=== PATIENT | male | born 1950 | race African-American/Black ===

== ENCOUNTER 2017-05-01 14:00 | Inpatient (IN) | payer OTHER ==
[~2017-05-01] VITALS: Ht 182.9 cm; Wt 85.0 kg
--- NOTE | ~2017-05-01 | EKG ---
[address] [place] [employer] [place] [address] ELECTROCARDIOGRAM REPORT Name: COLTONFLASH Kelley Room #: 212-P ADM IN M.R.#: [id number] Admission: 05/01/17 Attend Phys: Mark Anthony Palomares MD Discharge: Date of : 52 Report #: [id number] THIS REPORT FOR: //name// [facility] Test Date: 2017-05-02 Test Time: 05:56:31 Pat Name: FLASH SEGURA Department: Room: 212 P Gender: M Manager Highway: [place]YA : 1950 Requested By: Dov Montalvo Order Number: [id number] MD: Hema Salas Measurements Intervals [place] Rate: 84 P: NV: QRS: 80 QRSD: 114 T: 84 QT: 412 QTc: 488 Interpretive Statements Atrial flutter with predominant 3:1 AV block Poor R wave progression Cannot rule out inferior infarct, age indeterminate No previous ECG available for comparison Electronically Signed On 05-02-2017 16:43:39 CDT by Hema Salas [email or web address] <ELECTRONICALLY SIGNED> By: Hema Salas MD, [facility] 05/02/17 1643 0556 0556 Hema Salas MD, [facility] /EPI
--- NOTE | ~2017-05-01 | 2DMMODE ---
[facility] [address] [place] [address] 2 D/M-MODE ECHOCARDIOGRAM Name: FLASH SEGURA Room #: 212-P ADM IN M.R.#: [id number] Admission: 05/01/17 Attend Phys: Mark Anthony Palomares MD Discharge: Date of : 52 Date of Service: 05/02/17 1231 Report #: [id number] THIS REPORT FOR: //name// APPROVED REPORT Study performed: 05/02/2017 10:57:17 EXAM: Comprehensive 2D, Doppler, and color-flow Echocardiogram Patient Location: Echo lab Room #: [facility] Status: routine BSA: 2.06 HR: 92 bpm BP: 136/94 mmHg Rhythm: NSR/Irregular Other Information Study Quality: Adequate Indications Palpitations Chest Pain Hx: Mitral Valve repair 2D Dimensions RVDd: 32.86 mm LVEF(%): 24.29 (>50%) IVSd: 11.49 (7-11mm) LVOT Diam: 23.74 (18-24mm) LVDd: 50.52 mm PWd: 11.32 (7-11mm) Ascending Ao: 34.39 (22-36mm) LVDs: 44.84 (25-40mm) Aortic Root: 38.04 mm Banegas's LVEF: 24.29 % Volumes Left Atrial Volume (Systole) Single Plane 4CH: 47.97 mL Single Plane 2CH: 64.31 mL LA ESV Index: 30.00 mL/m2 Aortic Valve AoV Peak Sylvester.: 1.02 m/s AO Peak Gr.: 4.17 mmHg LVOT Max P.35 mmHg LVOT Max V: 0.77 m/s SHY Vmax: 3.32 cm2 Mitral Valve [facility] [address] [place] [address] 2 D/M-MODE ECHOCARDIOGRAM Name: COLTONTAYLORVIDALES Warren Room #: [facility] IN ..#: [id number] Admission: 05/01/17 Attend Phys: Mark Anthony Palomares MD Discharge: Date of : 52 Date of Service: 05/02/17 1231 Report #: [id number] MV Decel. Time: 188.11 ms MV E Max Sylvester.: 0.95 m/s IVRT: 127.64 ms Pulmonary Valve PV Peak Sylvester.: 0.49 m/s PV Peak Gr.: 0.95 mmHg Tricuspid Valve TR Peak Sylvester.: 2.55 m/s RAP Estimate: 5.00 mmHg TR Peak Gr.: 26.00 mmHg PA Pressure: 31.00 mmHg Left Ventricle The left ventricle is normal size. There is normal left ventricular wall thickness. Left ventricular systolic function is at the lower limits of normal LVEF 45-50%. This study is not technically sufficient to allow evaluation of the LV diastolic function. Right Ventricle The right ventricle is normal size. The right ventricular systolic function is normal. Atria Left atrium is mildly dilated. Right atrium is mildly dilated. Aortic Valve The aortic valve is normal in structure. No aortic regurgitation is present. There is no aortic valvular stenosis. Mitral Valve Changes consistent with mitral valve repair Mild mitral regurgitation. No evidence of mitral valve stenosis. Tricuspid Valve The tricuspid valve is normal in structure. Mild tricuspid regurgitation. Estimated PAP 31 mmHg. Pulmonic Valve The pulmonary valve is normal in structure. Mild pulmonic regurgitation. Great Vessels The aortic root is normal in size. The ascending aorta is normal in size. IVC is normal in size and collapses >50% with inspiration. [facility] [address] [place] [address] 2 D/M-MODE ECHOCARDIOGRAM Name: FLASH SEGURA Warren Room #: 212-P [facility] IN .R.#: [id number] Admission: 05/01/17 Attend Phys: Mark Anthony Palomares MD Discharge: Date of : 52 Date of Service: 05/02/17 1231 Report #: [id number] Pericardium There is no pericardial effusion. <Conclusion> Left ventricular systolic function is at the lower limits of normal LVEF 45-50%. Both atria are mildly dilated. The aortic valve is normal in structure. No aortic regurgitation or stenosis Changes consistent with mitral valve repair. Mild mitral regurgitation. Pulmonary artery pressure of 30mmHg There is no pericardial effusion. <ELECTRONICALLY SIGNED> By: Hema Salas MD, FACC 05/02/17 1231 1231 1231 Hema Salas MD, FACC /INF
--- NOTE | ~2017-05-01 | CATHLAB ---
[facility] [address] [place] [address] INVASIVE PROCEDURE REPORT Name: COLTONFLASH Room #: 212-P DIS IN [facility].#: [id number] Admission: 05/01/17 Attend Phys: Mark Anthony Palomares MD Discharge: 05/04/17 Date of : 52 Date of Service: 05/12/17 1628 Report #: [id number] THIS REPORT FOR: //name// APPROVED REPORT Study performed: 05/03/2017 10:21:02 Patient Details Patient Status: In-Patient Room #: The patient is a 66 year-old male Event Personnel Dov Montalvo Lay Out Machine Operator, Bonilla Thompson RN, Sunshine Reed RTR, OCTAVIANO Pierre, Jonh Palacios Monitor Procedures Performed Left Heart Cath Coronaries, Bypass Grafts 5148636 LHCCORCABG PTCA Single Vessel DIAG [id number] PCISINGLE Aortogram Abdominal Peripheral Angio [id number] Indication Chest pain Procedure Narrative The Right Groin^ was infiltrated with 1% Lidocaine subcutaneous anesthesia. A PINNACLE 6FR Sheath #[id number] sheath was inserted into the RFA^. Coronary angiography was performed using coronary diagnostic catheters. The right coronary system was accessed and visualized with a JR4 catheter. The left coronary system was accessed and visualized with a JL4 catheter. The left ventricle was accessed and visualized with a PIGTAIL catheter. Left ventriculogram was performed in 30 degree projection. An aortogram of the abdominal aorta was performed. Closure device was deployed with a 6 Fr MYNXGRIP 6/7F #[id number]. The patient tolerated the procedure well and there were no complications associated with the procedure. There was no hematoma. Intraoperative Conscious Sedation Sedation start time: 12.40 Case end Time: 13.28 Fentanyl 25 mcg Versed 2 mg Fluoro Time: 8.46 minutes Dose: 1206 mGy Contrast Type and Amount: Omnipaque 225 ml [facility] [place] [address] INVASIVE PROCEDURE REPORT Name: FLASH SEGURA Room #: 212-P [facility] IN ..#: [id number] Admission: 05/01/17 Attend Phys: Mark Anthony Palomares MD Discharge: 05/04/17 Date of : 52 Date of Service: 05/12/17 1628 Report #: [id number] IVUS A Guide Catheter was used to engage the LAUNCHER 6FR EBU 4 #[id number] ostium. A Luge Wire .014 x 182CM #[id number] was used. IVUS Findings Sprinter OTW 2.5 x 12 #[id number] Hemodynamics The aortic pressure is 123/73 mmHg with a mean of 84 mmHg. The left ventricular pressure is 130/72 mmHg with a mean of mmHg. PCI Technique Lesion Percutaneous coronary intervention was performed on the first diagnonal branch segment. A LAUNCHER 6FR EBU 4 #[id number] Guide Catheter was used to engage the LCA ostium. A Luge Wire .014 x 182CM #[id number] Interventional Guidewire was used to cross the lesion. BALLOON DILATION A Balloon catheter Sprinter OTW 2.5 x 12 #[id number] was inserted and inflated up to 8.00atm for 12seconds. Additional Inflation: 8.00atm for 14seconds. Additional Inflation: 8.00atm for 27seconds. PCI Technique Lesion A LAUNCHER 6FR EBU 4 #991154 Guide Catheter was used to engage the ostium. A Luge Wire .014 x 182CM #[id number] Interventional Guidewire was used to cross the lesion. BALLOON DILATION A Balloon catheter Sprinter OTW 2.5 x 12 #[id number] was inserted and inflated up to 8.00atm for 20seconds. Additional Inflation: 8.00atm for 25seconds. Additional Inflation: 8.00atm for 16seconds. Conclusion #1 successful PTCA of high-grade proximal diagonal branch lesion (no stent placed) #2 left main with mild irregularities giving rise to LAD and circumflex #3 LAD with mild disease extends to the apex. #4 circumflex OM is nondominant first OM branch is occluded distally the OM is diffusely diseased and patent #5 dominant RCA has moderate disease 50% mid vessel lesion 30-40% distal giving rise this relatively small PDA LYN widely patent #6 SVG to OM system is intact with mild irregularity. #7 evidence of a mitral valve ring repair [address] [address] INVASIVE PROCEDURE REPORT Name: FLASH SEGURA Room #: 212-P [facility] IN M.R.#: [id number] Admission: 05/01/17 Attend Phys: Mark Anthony Palomares MD Discharge: 05/04/17 Date of : 52 Date of Service: 05/12/171627 Report #: [id number] Recommendations and plan continue aggressive risk factor modification will utilize dual antiplatelet therapy for one month post PTCA only of diagonal branch. Transfer CCU in stable condition. <ELECTRONICALLY SIGNED> By: Dov Montalvo MD, FACC 05/12/178 27 27 Dov Montalvo MD, FACC /INF
--- NOTE | ~2017-05-01 | EKG ---
[address] [place] [address] ELECTROCARDIOGRAM REPORT Name: COLTONFLASH Kelley Room #: 212-P ADM IN M.R.#: [id number] Admission: 05/01/17 Attend Phys: Mark Anthony Palomares MD Discharge: Date of : 52 Report #: [id number] THIS REPORT FOR: //name// [facility] ED Test Date: 2017-05-01 Test Time: 14:00:51 Pat Name: FLASH SEGURA Department: Room: [facility] Gender: M Hat Body Sorter: ANTONIA : 1950 Requested By: Paolo Obrien Order Number: [id number] MD: Hema Salas Measurements Intervals [place] Rate: 95 P: 0 NE: 163 QRS: -18 QRSD: 90 T: 68 QT: 381 QTc: 479 Interpretive Statements Atrial flutter with variable AV conduction Premature ventricular complexes Possible Inferior infarct, age indeterminate No previous ECG available for comparison Electronically Signed On 05-02-2017 13:20:27 CDT by Hema Salas [email or web address] <ELECTRONICALLY SIGNED> By: Hema Salas MD, [facility] 05/02/17 1320 1400 1400 Hema Salas MD, FAC /EPI
--- NOTE | ~2017-05-01 | EKG ---
[address] [place] [address] ELECTROCARDIOGRAM REPORT Name: COLTONFLASH Kelley Room #: 212-P ADM IN M.R.#: [id number] Admission: 05/01/17 Attend Phys: Mark Anthony Palomares MD Discharge: Date of : 52 Report #: [id number] THIS REPORT FOR: //name// [facility] ED Test Date: 2017-05-01 Test Time: 15:30:41 Pat Name: FLASH SEGURA Department: Room: 212 P Gender: M Secretary Specialist: WINTER : 1950 Requested By: Paolo Obrien Order Number: [id number] MD: Hema Salas Measurements Intervals [place] Rate: 108 P: IA: QRS: 40 QRSD: 103 T: 60 QT: 375 QTc: 503 Interpretive Statements Atrial flutter with predominant 3:1 AV block Premature ventricular complexes Inferior infarct, age indeterminate Poor R wave progression No previous ECG available for comparison Electronically Signed On 05-02-2017 13:22:45 CDT by Hema Salas [email or web address] <ELECTRONICALLY SIGNED> By: Hema Salas MD, [facility] 05/02/17 1322 29 29 Hema Salas MD, [facility] /EPI
--- NOTE | ~2017-05-01 | HC ---
[facility] [place] [address] CONSULTATION Name: COLTONVIDALES Warren Room #: 212-P ADM IN M.R.#: [id number] Admission: 05/01/17 Attend Phys: Mark Anthony Palomares MD Discharge: Date of : 52 Report #: [id number] THIS REPORT FOR: //name// CC: FAM unknown Mark Anthony Weir MD DATE OF SERVICE: 05/01/2017 HISTORY OF PRESENT ILLNESS: The patient is a 66-year-old male. He came to the Emergency Room after complaining of some irregular heartbeat, some fluttering and perhaps some left-sided chest discomfort. He has a history of a 2-vessel mitral bypass and a mitral valve repair in November 2016 at [facility] by Dr. Howell. He has been fatigued and never really bounced back. He states from the surgery, but was diagnosed with prostate cancer approximately in the last 1-2 months and is senior care through radiation therapy for prostate cancer. He remains fairly active, although he is retired from [employer]. He denies PND, orthopnea, peripheral edema. Just wishes that he could get back to playing tennis and to be an active again, but he denies any recurrent chest pain, pressure, just his palpitation issue and was noted to have some irregularity last week in rehabilitation. Was seen by his front office coordinator in the last 10 days or so, but no EKG had been performed he stated. He does not really feel worse today. Troponins at 0.07 and 0.06 are not diagnostic. There is no acute injury pattern. He is found to be in atrial flutter with a moderate ventricular response and frequent PVCs are noted. He does not have any history of this that he is aware of, does not believe that he ever had this postoperatively. There is no current of injury, although was interpreted initially in the Emergency Room differently. This is not an infarct pattern. He has been compliant with medications, which are aspirin, Lipitor 10, Flomax 0.4, lisinopril/HCT 10/12.5. PAST MEDICAL AND SURGICAL HISTORY: Positive for he had some hernia repair a year or two ago and then subsequently the bypass surgery 2 vessels and the mitral valve repair. Some borderline hypertension, hypercholesterolemia. He states he has been quite healthy his whole life. ALLERGIES: No known drug allergies. SOCIAL HISTORY: He is , has a significant other girlfriend with him. He has one child who is in school and doing well. He is a social alcohol user recreational in the remote past, drug user and tobacco user, but really none of this currently. He is retired from [employer] period of 20 years. FAMILY HISTORY: Negative for any premature coronary artery disease. LABORATORY WORK: Potassium is 3.9, sodium is 141, creatinine 1.0. Troponin [address] [address] CONSULTATION Name: FLASH SEGURA Warren Room #: 212-P ADM IN M.R.#: [id number] Admission: 05/01/17 Attend Phys: Mark Anthony Palomares MD Discharge: Date of : 52 Report #: [id number] 0.06 and 0.07, certainly not diagnostic. BNP was 770. H and H is 11.6 and 35.8, white count 7.3, platelets 355. EKG shows some borderline cardiomegaly, but no acute pulmonary disease. No pulmonary edema. REVIEW OF SYSTEMS: Essentially negative except for as stated above, the fatigue and some hesitancy, undergoing radiation therapy for prostate cancer. PHYSICAL EXAMINATION: GENERAL: He is pleasant, alert. He is in a chair. He is having no discomfort. VITAL SIGNS: Pulse is 100 and irregularly irregular, blood pressure 130/90. HEENT: Eyes show xanthelasmas. Pharynx is clear. NECK: Shows preserved upstrokes without JVD or bruits. LUNGS: Clear. CARDIOVASCULAR: Irregularly irregular S1, S2, holosystolic murmur at the apex. ABDOMEN: Soft. No HSM. No abdominal bruit. EXTREMITIES: Reveal no edema. Distal pulses diminished, but intact. NEUROLOGIC: Nonfocal. SKIN: Warm and dry without xanthoma or ulcer. MUSCULOSKELETAL: No gross joint deformity. Mild arthritic changes are noted. ASSESSMENT: 1. Recent onset atrial fibrillation/flutter with moderate ventricular response, rate control. 2. Chest pain, resolved with nondiagnostic equivocal troponin of 0.06 and 0.07. No evidence of ischemia on EKG. 3. History of 2-vessel bypass with mitral valve repair in November 2016. 4. Hypertension. 5. Hypercholesterolemia. RECOMMENDATIONS AND PLAN: The patient is comfortable, he had been placed on heparin drip. I will place him on Lovenox b.i.d. for ease and no need for bunch of unnecessary blood draws. He will need to be anticoagulated from the atrial fibrillation/flutter. I will repeat an echo Doppler like the valve and an LV function. In addition, nuclear stress testing. There has been no testing done since the bypass and valve repair of November last year. Based on the symptoms, we will need to rule out any significant ischemia, I think is highly unlikely here and we will also obtain echo Doppler. He will need some long-term anticoagulation. He has a mitral valve repair and no longer anticoagulated for that repair, so this essentially could be what they want us to deem is non-valvular AFib or valvular AFib. Warfarin and Coumadin was very onerous postoperatively, he preferred not to have that. He is not anticoagulated based on the mitral valve repair. One could certainly utilize and novel a direct oral anticoagulant going forward. We will make further recommendations as hospitalization. Certainly seems to be stable at this point. I discussed this plan with him and his significant other in detail. [facility] [address] [place] [address] CONSULTATION Name: FLASH SEGURA Room #: 212-P ADM IN ..#: [id number] Admission: 05/01/17 Attend Phys: Mark Anthony Palomares MD Discharge: Date of : 52 Report #: [id number] Thank you for allowing me to assist in the care of this patient. <ELECTRONICALLY SIGNED> By: Dov oMntalvo MD, FACC 05/02/17 1231 2218 0010 Dov Montalvo MD, FACC /nt
[2017-05-01 14:04] VITALS: BP 151/94
[2017-05-01] MEDS ORDERED: ASPIRIN81 M2 PO (14:05)
[2017-05-01] MEDS ORDERED: LIPITOR10 MG PO (14:05)
[2017-05-01] MEDS ORDERED: LISINOPRIL10 MG PO (14:06)
[2017-05-01] MEDS ORDERED: MICROZIDE12.5 MG PO (14:06)
[2017-05-01] MEDS ORDERED: FLOMAX0.4 MG PO (14:06)
[2017-05-01 14:25] LABS: HEMATOCRIT 35.8 % (42.0-52.0); HEMOGLOBIN 11.6 gm/dL (14.0-18.0); MCH 23.8 pg (26.0-34.0); MCHC 32.4 g/dL (28.0-37.0); MCV 73.7 fL (80.0-100.0); RBC 4.87 mil/uL (4.50-6.00); RDW 15.8 % (10.5-14.5); WBC 7.3 thou/uL (4.0-11.0)
[2017-05-01 14:36] LABS: INR 1.1; PROTIME 11.1 Seconds (9.3-11.4)
[2017-05-01 14:57] LABS: CALCIUM 9.3 mg/dL (8.5-10.1); POTASSIUM 3.9 mmol/L (3.5-5.1)
[2017-05-01 15:05] LABS: ALBUMIN 3.3 g/dL (3.4-5.0); TOTAL BILIRUBIN 0.6 mg/dL (<0.1-1.0); TOTAL PROTEIN 7.4 g/dL (6.4-8.2); TROPONIN-I 0.06 ng/mL (<0.06)
[2017-05-01 16:02] VITALS: BP 127/103
[2017-05-01 17:11] VITALS: BP 149/110
[2017-05-01 19:36] VITALS: BP 132/91
[2017-05-01] MEDS ORDERED: CENTRUM SILVER1 EAC4 PO (21:05)
[2017-05-02 00:08] VITALS: BP 120/63
[2017-05-02 04:11] VITALS: BP 136/94
[2017-05-02 04:52] LABS: CALCIUM 9.2 mg/dL (8.5-10.1); POTASSIUM 3.9 mmol/L (3.5-5.1)
[2017-05-02 04:56] LABS: CHOLESTEROL 114 mg/dL (<200); HDL CHOLESTEROL 68 mg/dL (>40); LDL CHOLESTEROL 41 mg/dL (<100); TC:HDL 1.7 Ratio (Not establshd); TRIGLYCERIDE 29 mg/dL (<150); VLDL 6 mg/dL (<40)
[2017-05-02 05:15] LABS: SERUM ASSESSMENT Clear
[2017-05-02 05:24] LABS: HEMATOCRIT 34.9 % (42.0-52.0); MCH 23.3 pg (26.0-34.0); MCHC 31.4 g/dL (28.0-37.0); MCV 74.2 fL (80.0-100.0); RBC 4.71 mil/uL (4.50-6.00); RDW 16.1 % (10.5-14.5); WBC 8.3 thou/uL (4.0-11.0)
[2017-05-02 15:38] VITALS: BP 136/92
[2017-05-02 19:15] VITALS: BP 105/69
[2017-05-03] VITALS (15 sets, daily range): BP systolic 110–145; BP diastolic 68–103
[2017-05-04 05:15] VITALS: BP 134/92
[2017-05-04 07:25] VITALS: BP 121/86
[2017-05-04] MEDS ORDERED: XARELTO20 MG PO (09:55)
[2017-05-04] MEDS ORDERED: METOPROLOL SUCC50 MG PO (09:56)
[2017-05-04 10:07] VITALS: BP 134/92
== END 2017-05-04 11:05 | disposition home or self-care (01) | DRG 250 ==
LOC: ER 14:00 → EROBS 15:26 → 2N 15:26 → ENTRNSPT 05-04 10:43 → EDTRNSPTSTS 05-04 10:55 → 2N 05-04 11:05
PROVIDERS: Emergency Medicine; Hospitalist
PROC: 4A023N7 Measurement of Cardiac Sampling and Pressure, Left Heart, Percutaneous Approach (ICD-10-PCS; principal; 2017-05-03)
PROC: B2111ZZ Fluoroscopy of Multiple Coronary Arteries using Low Osmolar Contrast (ICD-10-PCS; principal; 2017-05-03)
PROC: 02703ZZ Dilation of Coronary Artery, One Artery, Percutaneous Approach (ICD-10-PCS; principal; 2017-05-03)
DX: I48.92 Unspecified atrial flutter (principal); I50.23 Acute on chronic systolic (congestive) heart failure; E78.00 Pure hypercholesterolemia, unspecified; I25.10 Atherosclerotic heart disease of native coronary artery without angina pectoris; F12.90 Cannabis use, unspecified, uncomplicated; C61 Malignant neoplasm of prostate; I48.91 Unspecified atrial fibrillation; Z79.82 Long term (current) use of aspirin; Z79.899 Other long term (current) drug therapy; Z87.891 Personal history of nicotine dependence; Z28.21 Immunization not carried out because of patient refusal; Z95.1 Presence of aortocoronary bypass graft; I11.0 Hypertensive heart disease with heart failure
CPT/HCPCS: 10194

== ENCOUNTER 2018-02-18 05:08 | Emergency (ER) | payer OTHER ==
[~2018-02-18] VITALS: Ht 182.9 cm; Wt 90.7 kg
[~2018-02-18 05:08] MED LIST: ASPIRIN81 M2 PO; CENTRUM SILVER1 EAC4 PO; FLOMAX0.4 MG PO; LIPITOR10 MG PO; LISINOPRIL10 MG PO; METOPROLOL SUCC50 MG PO; MICROZIDE12.5 MG PO; XARELTO20 MG PO
[2018-02-18] MEDS ORDERED: KEFLEX500 M1 PO (06:21)
[2018-02-18 07:24] VITALS: BP 181/85
== END 2018-02-18 07:25 | disposition home or self-care (01) ==
LOC: ER 05:08
DX: R04.0 Epistaxis (principal); Z87.891 Personal history of nicotine dependence

== ENCOUNTER → 2019-06-21 | Outpatient (CLI) | payer OTHER ==
[~2019-06-21] MED LIST changes: +KEFLEX500 M1 PO
== END ==
LOC: SJCVCIMAG 05-20 13:19
DX: I08.8 Other rheumatic multiple valve diseases (principal); I11.9 Hypertensive heart disease without heart failure; I44.0 Atrioventricular block, first degree; R94.31 Abnormal electrocardiogram [ECG] [EKG]; I25.810 Atherosclerosis of coronary artery bypass graft(s) without angina pectoris; E78.00 Pure hypercholesterolemia, unspecified; I42.9 Cardiomyopathy, unspecified; I48.0 Paroxysmal atrial fibrillation; D68.59 Other primary thrombophilia; I49.3 Ventricular premature depolarization; R53.83 Other fatigue; I25.2 Old myocardial infarction; Z82.49 Family history of ischemic heart disease and other diseases of the circulatory system; Z79.899 Other long term (current) drug therapy; Z87.891 Personal history of nicotine dependence; Z98.890 Other specified postprocedural states; Z95.1 Presence of aortocoronary bypass graft

== ENCOUNTER → 2019-06-25 | Outpatient (CLI) | payer OTHER | LOC: SJCVCIMAG 09:22 | DX: R94.31 Abnormal electrocardiogram [ECG] [EKG] (principal); I49.3 Ventricular premature depolarization; I25.810 Atherosclerosis of coronary artery bypass graft(s) without angina pectoris; I48.0 Paroxysmal atrial fibrillation; I42.9 Cardiomyopathy, unspecified; I25.5 Ischemic cardiomyopathy; E78.5 Hyperlipidemia, unspecified; I25.2 Old myocardial infarction; I10 Essential (primary) hypertension; Z87.891 Personal history of nicotine dependence; Z98.61 Coronary angioplasty status; Z79.01 Long term (current) use of anticoagulants; Z79.899 Other long term (current) drug therapy ==

== ENCOUNTER → 2019-09-25 | Outpatient (CLI) | payer OTHER ==
[~2019-09-25] MED LIST changes: +CARVEDILOL3.125 MG PO; +SORINE 80 MG TA80 MG PO
== END ==
LOC: SJCVCIMAG 14:05
PROVIDERS: ATTEND Internal Medicine Cardiovascular Disease
DX: I08.8 Other rheumatic multiple valve diseases (principal); I44.0 Atrioventricular block, first degree; I48.91 Unspecified atrial fibrillation; I25.10 Atherosclerotic heart disease of native coronary artery without angina pectoris; I11.0 Hypertensive heart disease with heart failure; I50.20 Unspecified systolic (congestive) heart failure; I25.5 Ischemic cardiomyopathy; E78.5 Hyperlipidemia, unspecified; E78.00 Pure hypercholesterolemia, unspecified; I25.2 Old myocardial infarction; Z79.899 Other long term (current) drug therapy; Z87.891 Personal history of nicotine dependence

== ENCOUNTER → 2019-09-30 | Outpatient (CLI) | payer OTHER ==
[~2019-09-30] MED LIST changes: -CARVEDILOL3.125 MG PO; -SORINE 80 MG TA80 MG PO
== END ==
LOC: LAB 11:28
PROVIDERS: ATTEND Internal Medicine Cardiovascular Disease
DX: Z01.812 Encounter for preprocedural laboratory examination (principal); Z11.59 Encounter for screening for other viral diseases

== ENCOUNTER 2019-10-04 09:35 | Observation (INO) | payer OTHER ==
[~2019-10-04] VITALS: Ht 182.9 cm; Wt 96.2 kg
[2019-10-04] VITALS (9 sets, daily range): BP systolic 108–151; BP diastolic 62–97
--- NOTE | ~2019-10-04 | P ---
[facility] [address] PROCEDURE REPORT Name: FLASH SEGURA Room #: 213-P [facility] M.R.#: [id number] Admission: 10/04/19 Attend Phys: Cristobal Jennings MD Discharge: Date of : 52 Report #: [id number] THIS REPORT FOR: cc: Lorenza Weir MD,Lorenza Jennings,Cristobal Barron MD ~ CC: Cristobal Weir DATE OF SERVICE: 10/04/2019 PROCEDURE: ICD implantation. PREOPERATIVE DIAGNOSIS: Ischemic cardiomyopathy. POSTOPERATIVE DIAGNOSIS: Ischemic cardiomyopathy. HISTORY: The patient is a 68-year-old with history of coronary artery disease, status post WA with ischemic cardiomyopathy, EF of less than 35% with class 2-3 heart failure symptoms, here for ICD implantation for primary prevention of sudden cardiac . ANESTHESIA: The patient underwent MAC anesthesia with no anesthesia-related complications. DESCRIPTION OF PROCEDURE: The patient underwent informed consent. We discussed the details of the procedure including the risks, which include but not limited to bleeding, infection, vascular damage, cardiac perforation, and pneumothorax. He understood these risks and is willing to proceed. The patient was brought to EP laboratory in fasting and sedated state, prepped and draped in a sterile fashion, received IV antibiotics and underwent venogram showing patency of the left axillary vein. Next, I injected lidocaine at the incision site. Incision was made, pocket was created over the prepectoral fascia and access was obtained twice to left axillary vein using the extrathoracic approach. Sheaths were positioned using the modified Seldinger technique. Next, under fluoroscopy, RV lead was placed in the right ventricular apex and atrial lead was placed in the right atrial appendage both with adequate pacing and sensing thresholds. Leads were sutured to the prepectoral fascia, connected to the device. Tug test performed, pocket irrigated with vancomycin. Pocket closed in 2 layers using 2-0 for the deep layer, 3-0 for the middle layer and surgical glue was placed to outer skin layer. The patient awoke neurologically and hemodynamically intact. No complications and no significant bleeding. Implant device and leads were [employer] with ICD that was a model #[id number], [facility] [address] [place] [address] PROCEDURE REPORT Name: COLTONFLASH Room #: 213-P [facility] M.R.#: [id number] Admission: 10/04/19 Attend Phys: Cristobal Jennings MD Discharge: Date of : 52 Report #: [id number] serial #[id number]. Atrial lead was model #5076, 52 cm, with P-wave of 2.4 millivolts, pacing impedance of 864 ohms and pacing threshold of 0.9 volts at 0.4 milliseconds. RV lead was 6935, 62 cm, serial #[id number] with R-wave of 12.4 millivolts, pacing impedance of 557 ohms, pacing threshold of 0.6 volts at 0.4 milliseconds. The device was programmed to DDDR 60-130 mode. The VT zone was set at 180-220 beats per minute with 3 rounds of burst followed by 3 rounds of ramp followed by max output shocks. VF zone was set at greater than 240 beats per minute with ATP while charging followed by max output shocks. CONCLUSIONS: 1. Successful dual-chamber ICD implantation. 2. Satisfactory atrial and ventricular pacing and sensing thresholds. By: 1341 1414 Cristobal Jennings MD /nt
[2019-10-04 11:11] LABS: HEMATOCRIT 40.1 % (42.0-52.0); HEMOGLOBIN 13.2 gm/dL (14.0-18.0); MCH 25.2 pg (26.0-34.0); MCHC 32.8 g/dL (28.0-37.0); MCV 76.8 fL (80.0-100.0); RBC 5.23 mil/uL (4.50-6.00); RDW 15.3 % (10.5-14.5); WBC 7.6 thou/uL (4.0-11.0)
[2019-10-04 11:19] LABS: CALCIUM 8.8 mg/dL (8.5-10.1); CREATININE 1.3 mg/dL (0.7-1.3); POTASSIUM 3.6 mmol/L (3.5-5.1)
[2019-10-04 11:26] LABS: ALBUMIN 3.7 g/dL (3.4-5.0); TOTAL PROTEIN 7.6 g/dL (6.4-8.2)
[2019-10-04 11:30] LABS: INR 1.1
[2019-10-04] MEDS ORDERED: XARELTO20 MG PO (16:14)
[2019-10-04] MEDS ORDERED: SORINE 80 MG TA80 MG PO (16:14)
--- NOTE | 2019-10-04 16:51 | NUR ---
PT CARE ASSUMED APPROX 1420. ASSESSMENTS CHARTED. PT DENIES SOA. REPORTS ADEQUATE PAIN MANAGEMENT OF LEFT CHEST INCISION. POST ICD PLACEMENT VSS WITHIN NORMAL LIMITS. INCISION CLOSED WITH SURGICAL GLUE IS C/D/I. PT'S GAIT UNASSESSED AT THIS TIME DUE TO BATHROOM PRIV ONLY. POC EXPLAINED TO PT AND SPOUSE AT BEDSIDE UPON ARRIVAL TO UNIT. BOTH DENIED QUESTIONS OR CONCERNS REGARDING POC. PT TOLERATING POC. NO DISTRESS NOTED.
[2019-10-05] VITALS: BP 143/76
--- NOTE | 2019-10-05 03:57 | NUR ---
ASSESSED AT START OF SHIFT 1900. PT RESTING IN BED HYDROCODONE GIVEN FOR MILD PAIN OF 4/10 WITH COMPLETE RELIEF. ICD INCISION C/D/I. URINAL AT BED SIDE. SHOULDER IMBOLIZATION INTACT. RESTORIL GIVEN FOR SLEEP PT SLEPT THE REST OF NIGHT WILL CONT TO MONITOR
[2019-10-05 04:00] VITALS: BP 142/80
[2019-10-05 07:40] VITALS: BP 139/72
[2019-10-05] MEDS ORDERED: CARVEDILOL3.125 MG PO (09:25)
[2019-10-05 10:18] VITALS: BP 139/72
--- NOTE | 2019-10-05 10:57 | NUR ---
ASSUMED CARE OF PT AT SHIFT CHANGE. ASSESSMENT CHARTED. MEDS GIVEN PER APR. PT A&OX4, NO C/O PAIN OR DISTRESS. DISCHARGE ORDERS AND INSTRUCTIONS COMPLETE, IV AND TELE DC'D. PT LEFT IN WHEELCHAIR TO WAITING IN OWN CAR.
[2019-10-05 10:58] VITALS: BP 139/72
--- NOTE | 2019-10-05 11:39 | EKG ---
[facility] [place] [address] ELECTROCARDIOGRAM REPORT Name: FLASH SEGURA Room #: 213- DIS [facility] M.R.#: [id number] Admission: 10/04/19 Attend Phys: Cristobal Jennings MD Discharge: 10/05/19 Date of : 52 Report #: [id number] THIS REPORT FOR: cc: Lorenza Weir MD, Teresa MD Couchonnal, Luis F. MD ~ THIS REPORT FOR: //name// [facility] Test Date: 2019-10-05 Test Time: 07:48:44 Pat Name: FLASH SEGURA Department: Room: 213 Gender: M Fish Grader: Kike JESUS : 1950 Requested By: Cristobal Jennings Order Number: [id number] MD: Cristobal Jennings Measurements Intervals [place] Rate: 88 P: 61 MI: 93 QRS: 123 QRSD: 126 T: -23 QT: 428 QTc: 480 Interpretive Statements Atrial-paced complexes No further analysis attempted due to paced rhythm Compared to ECG 05/02/2017 05:56:31 Electronically Signed On 10-05-2019 11:39:45 CDT by Cristobal Jennings [email or web address] <ELECTRONICALLY SIGNED> By: Cristobal Jennings MD 10/05/19 1139 0748 Cristobal Jennings MD /EPI
== END 2019-10-05 11:10 | disposition home or self-care (01) ==
LOC: CATH 09:35 → 2N 14:04
PROVIDERS: ADMIT Internal Medicine Cardiovascular Disease; ATTEND Internal Medicine Cardiovascular Disease
DX: I25.5 Ischemic cardiomyopathy (principal); I25.10 Atherosclerotic heart disease of native coronary artery without angina pectoris; I48.0 Paroxysmal atrial fibrillation; I10 Essential (primary) hypertension; E78.5 Hyperlipidemia, unspecified; Z79.82 Long term (current) use of aspirin; Z79.899 Other long term (current) drug therapy; Z95.1 Presence of aortocoronary bypass graft

== ENCOUNTER → 2019-11-20 | Outpatient (CLI) | payer OTHER ==
[~2019-11-20] MED LIST changes: +CARVEDILOL3.125 MG PO; +SORINE 80 MG TA80 MG PO
== END ==
LOC: SJCVC 13:02
PROVIDERS: ATTEND Internal Medicine Cardiovascular Disease
DX: Z45.02 Encounter for adjustment and management of automatic implantable cardiac defibrillator (principal); R94.31 Abnormal electrocardiogram [ECG] [EKG]; I49.3 Ventricular premature depolarization; I25.5 Ischemic cardiomyopathy; I10 Essential (primary) hypertension; E78.00 Pure hypercholesterolemia, unspecified; I25.2 Old myocardial infarction; Z95.1 Presence of aortocoronary bypass graft; Z95.810 Presence of automatic (implantable) cardiac defibrillator; Z79.899 Other long term (current) drug therapy; Z87.891 Personal history of nicotine dependence

== ENCOUNTER → 2020-01-02 | Outpatient (CLI) | payer OTHER | LOC: SJCVC 14:01 | PROVIDERS: ATTEND Internal Medicine Cardiovascular Disease | DX: I49.3 Ventricular premature depolarization (principal); R94.31 Abnormal electrocardiogram [ECG] [EKG]; I48.0 Paroxysmal atrial fibrillation; I48.92 Unspecified atrial flutter; I25.5 Ischemic cardiomyopathy; I25.10 Atherosclerotic heart disease of native coronary artery without angina pectoris; I10 Essential (primary) hypertension; E78.00 Pure hypercholesterolemia, unspecified; I25.2 Old myocardial infarction; Z95.1 Presence of aortocoronary bypass graft; Z98.61 Coronary angioplasty status; Z95.810 Presence of automatic (implantable) cardiac defibrillator; Z98.890 Other specified postprocedural states; Z79.899 Other long term (current) drug therapy; Z87.891 Personal history of nicotine dependence ==

== ENCOUNTER → 2020-01-15 | Outpatient (CLI) | payer OTHER | LOC: LAB | PROVIDERS: ATTEND Internal Medicine Cardiovascular Disease | DX: Z01.812 Encounter for preprocedural laboratory examination (principal); Z20.828 Contact with and (suspected) exposure to other viral communicable diseases ==

== ENCOUNTER 2020-01-20 06:32 | Observation (INO) | payer OTHER ==
[~2020-01-20] VITALS: Ht 182.9 cm; Wt 98.9 kg
[2020-01-20 07:48] VITALS: BP 136/75
[2020-01-20] MEDS ORDERED: BENICAR HCT 401 EACH PO (08:11)
[2020-01-20 08:12] LABS: BASOPHILS 0.5 % (0.0-2.0); EOSINOPHILS 3.1 % (0.0-3.0); HEMATOCRIT 42.6 % (42.0-52.0); HEMOGLOBIN 13.5 gm/dL (14.0-18.0); MCH 24.8 pg (26.0-34.0); MCHC 31.7 g/dL (28.0-37.0); MCV 78.1 fL (80.0-100.0); MONOCYTES 6.7 % (1.0-8.0); PLATELET COUNT 220 thou/uL (150-400); POLYS 51.7 % (36.0-66.0); RBC 5.45 mil/uL (4.50-6.00); RDW 14.7 % (10.5-14.5); WBC 7.8 thou/uL (4.0-11.0)
[2020-01-20] MEDS ORDERED: BETAPACE120 MG PO (08:12)
[2020-01-20] MEDS ORDERED: XARELTO20 MG PO (08:13)
[2020-01-20 08:15] LABS: CREATININE 1.2 mg/dL (0.7-1.3); POTASSIUM 3.7 mmol/L (3.5-5.1)
[2020-01-20 08:21] LABS: ALBUMIN 3.7 g/dL (3.4-5.0); TOTAL PROTEIN 7.6 g/dL (6.4-8.2)
[2020-01-20 08:26] LABS: APTT 28.1 Seconds (24.5-32.8); INR 1.1; PROTIME 11.2 Seconds (9.3-11.4)
[2020-01-20 18:00] VITALS: BP 133/96
--- NOTE | 2020-01-20 18:50 | NUR ---
PT ARRIVED TO UNIT AT APPROX 1800 POST ABLATION PROCEDURE. PT ALERT AND ORIENTED.VSS. R AND L GROIN SITES CDI NOT HEMATOMA FORMATION. R SITE MINIMAL DRIED BLOOD. MARKED AND NOTED. TELE PUT ON PT SR WITH MINIMAL PVC. PLAN IS FOR PT TO DC TOMORROW. WILL CONT TO MONITOR AND FOLLOW POC.
[2020-01-20 20:00] VITALS: BP 134/72
[2020-01-21] VITALS: BP 134/65
[2020-01-21 04:42] VITALS: BP 129/74
--- NOTE | 2020-01-21 04:59 | NUR ---
PATIENT SLEPT MOST OF THE NIGHT. A&OX4. VSS. PATIENT VOIDING PER URINAL AT BEDSIDE. R&L GROIN SITES REMAIN SOFT, NO BLEEDING, NO HEMATOMA. PLANS FOR DISCHARGE TODAY. FRED ANY COMPLAINTS. CONTINUING TO ASSESS ACCORDING TO POC.
[2020-01-21 07:37] VITALS: BP 131/62
[2020-01-21 08:53] VITALS: BP 131/62
--- NOTE | 2020-01-21 10:16 | NUR ---
DISCHARGING TO HOME. DISCHARGE INSTRUCTIONS GIVEN, VERBALIZES UNDERSTANDING.
--- NOTE | 2020-01-24 13:36 | P ---
[facility] [place] [address] PROCEDURE REPORT Name: FLASH SEGURA Warren Room #: 205-P [facility] Megan Pearl#: [id number] Admission: 01/20/20 Attend Phys: Cristobal Jennings MD Discharge: 01/21/20 Date of : 52 Report #: [id number] THIS REPORT FOR: cc: Lorenza Weir MD, Teresa MD Couchonnal,Cristobal Barron MD ~ CC: Cristobal Weir VENTRICULAR TACHYCARDIA ABLATION PREOPERATIVE DIAGNOSES: 1. Frequent premature ventricular contractions. 2. Ischemic cardiomyopathy. 3. History of prior coronary artery bypass grafting and mitral valve repair. 4. Chronic left ventricular systolic heart failure. 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 He is here for PVC ablation. PROCEDURES PERFORMED: 1. VT ablation, CPT code 38837. 2. EP with left atrial pacing and recording, CPT code 95277. 3. Intracardiac echo, CPT code 55659. 4. Arterial line placement, CPT code 95696. 5. Second pathway ablation, CPT code 41128. 6. Pre-procedure ICD reprogramming, CPT code 46771. 7. Post-procedure ICD reprogramming, CPT code 78572. ANESTHESIA: The patient underwent general anesthesia with no anesthesia related complications. DESCRIPTION OF PROCEDURE: The patient underwent informed consent. We discussed the details of the procedure including the risks which include but not limited to bleeding, vascular damage, stroke, PA, cardiac perforation as well as damage to the viejas conduction system. He understood these risks and is willing to proceed. The patient was brought to EP laboratory in a fasting and sedated state and prepped and draped in a standard fashion. He was placed under general anesthesia. Next, I reprogrammed his ICD and turned off his ICD therapies. Next, I obtained access to the right femoral artery and the bilateral femoral veins. In the right femoral vein, I placed an 8 and 9-Iranian short sheath and in the left femoral vein, I placed a 6 and 7-Iranian short sheath and in the [facility] [address] [place] [address] PROCEDURE REPORT Name: COLTONFLASH Room #: [facility] Megan Pearl#: [id number] Admission: 01/20/20 Attend Phys: Cristobal Jennings MD Discharge: 01/21/20 Date of : 52 Report #: [id number] right femoral artery, I placed a 6-Iranian short sheath. Next, under fluoroscopy, I placed a decapolar catheter into the coronary sinus for left atrial pacing and recording and an ICE catheter into the right atrium. I then placed a quadripolar catheter into the right ventricular apex for right ventricular pacing. Using intracardiac ultrasound, I created a 3D geometry of the aorta, aortic valves, the coronary artery ostia in the left ventricular outflow tract and the mitral annulus. I then created a geometry of the pulmonic valve, right ventricular outflow tract and right ventricle. Next, I took the ablation catheter into the right ventricle and started mapping the PVCs. The patient had 2 PVC morphologies. The most frequent PVC was PVC #1, which demonstrated a biphasic R-wave in lead V1, transition in V2 was negative in leads II, III and aVF and was positive in lead 1. The second PVC was left bundle-branch block transitions in V4 and positive in II, III and aVF and positive in I. I started by mapping PVC #1 as this was the most frequent and was in a bigeminal pattern. This did not appear to be right sided as everything was laid in the right ventricular outflow tract and right ventricle. Therefore, the patient was systemically heparinized and I took a PentaRay catheter into the left ventricle. I first mapped the coronary cusps and it was ____ throughout here. I then crossed into the left ventricle and started apically and it appeared to be very ____ here. Based on the PVC morphology, we started looking more posterior septal and it appeared to be earliest in this region. I therefore removed the PentaRay and placed the ablation catheter and started mapping in this location and quickly we came across an area that was quite early. There appeared to be a local electrogram that was 20 milliseconds preceding the QRS complex. The pace map in this region demonstrated a pace map that was 95% matched with the PVC #1. Ablation was performed here at 50 kohli and 55 degrees and on the first burn, this immediately suppressed the PVCs. I performed a total of 4 ablation lesions in this region at 50 kohli with good contact and PVC #1 was eliminated for the remainder of the procedure. After this PVC was ablated, then PVC #2 became the dominant PVC occurring every 3-5 sinus beats. Quickly, this did not appear to be arising from the left ventricle and based on its morphology was likely right sided. I went back into the right ventricle and initially looked in the right ventricular outflow tract and it was not early at the site and then went more into the right ventricular septum and approximately 17 mm below the His. There was an area that appeared to be early. The local ventricular signal is 20 milliseconds preceding the PVC. A pace map was 93% identical to the clinical PVC. Ablation here was performed at 35 kohli given that I was slightly closer to the His, but there was no His signal noted on the ablation catheter and again on the first burn, the PVCs immediately were suppressed and eliminated. We monitored PVC #1 for an hour and PVC #2 for about 40 minutes. There was a third PVC that we had not previously seen that was infrequent. We did see one of these PVCs every couple of minutes. PVC #3 was left bundle-branch block transitions in V4, was positive in II, III and aVF, but was negative in lead I. I again looked in the region where we had just ablated on the right side and this was quite late. We decided to look for this again in the right ventricular outflow tract. However, these PVCs were quite infrequent [facility] [address] [place] [address] PROCEDURE REPORT Name: COLTONFLASH Room #: [address] [place] [address] Megan Pearl#: [id number] Admission: 01/20/20 Attend Phys: Cristobal Jennings MD Discharge: 01/21/20 Date of : 52 Report #: [id number] and therefore I started doing some pace mapping and I could not get any pace maps better than 80%. Of note, this PVC was quite a bit wider than PVC #2 in the inferior leads. Given its infrequency, this PVC was not ablated, but I doubt this was of clinical significance in decreasing his ejection fraction compared to the other more frequent PVCs. As such, the procedure was now concluded. Using intracardiac ultrasound, I verified there was no pericardial effusion. The patient received systemic protamine and once ACT was within acceptable range, all catheters and sheaths were pulled. Hemostasis was obtained. I re-interrogated the defibrillator and programmed it back to an AAIR/DDDR mode and turned back on the VT therapies. CONCLUSIONS: 1. Successful ablation of PVC #1 located along the inferior septal mitral annulus. 2. Successful ablation of PVC #2 located to the right ventricular septum, 17 mm below the His. 3. PVC #3, which was infrequent in nature, was not ablated and likely not of clinical significance. <ELECTRONICALLY SIGNED> By: Cristobal Jennings MD 01/24/20 [id number] Cristobal Jennings MD /nt
== END 2020-01-21 10:42 | disposition home or self-care (01) ==
LOC: CATH 06:32 → 2N 17:53
PROVIDERS: ADMIT Internal Medicine Cardiovascular Disease; ATTEND Internal Medicine Cardiovascular Disease
DX: I49.3 Ventricular premature depolarization (principal); I25.5 Ischemic cardiomyopathy; I25.10 Atherosclerotic heart disease of native coronary artery without angina pectoris; I48.0 Paroxysmal atrial fibrillation; E78.5 Hyperlipidemia, unspecified; Z98.890 Other specified postprocedural states; Z95.1 Presence of aortocoronary bypass graft; Z20.828 Contact with and (suspected) exposure to other viral communicable diseases; I50.22 Chronic systolic (congestive) heart failure
CPT/HCPCS: 62110; 62900; 65040; 70005

== ENCOUNTER → 2020-04-22 | Outpatient (CLI) | payer OTHER ==
[~2020-04-22] MED LIST changes: +BENICAR HCT 401 EACH PO; +BETAPACE120 MG PO
== END ==
LOC: SJCVC 13:10
PROVIDERS: ATTEND Internal Medicine Cardiovascular Disease
DX: R94.31 Abnormal electrocardiogram [ECG] [EKG] (principal); I44.0 Atrioventricular block, first degree; I25.5 Ischemic cardiomyopathy; I49.3 Ventricular premature depolarization; I48.0 Paroxysmal atrial fibrillation; I25.10 Atherosclerotic heart disease of native coronary artery without angina pectoris; E78.00 Pure hypercholesterolemia, unspecified; R53.83 Other fatigue; Z95.810 Presence of automatic (implantable) cardiac defibrillator; Z79.899 Other long term (current) drug therapy; Z85.46 Personal history of malignant neoplasm of prostate; Z87.891 Personal history of nicotine dependence

== ENCOUNTER → 2020-07-23 | Outpatient (CLI) | payer OTHER | LOC: SJCVCIMAG 08:20 | PROVIDERS: ATTEND Internal Medicine Cardiovascular Disease | DX: I07.1 Rheumatic tricuspid insufficiency (principal); I11.9 Hypertensive heart disease without heart failure; I77.819 Aortic ectasia, unspecified site; I44.0 Atrioventricular block, first degree; I25.10 Atherosclerotic heart disease of native coronary artery without angina pectoris; I25.5 Ischemic cardiomyopathy; I49.3 Ventricular premature depolarization; I48.0 Paroxysmal atrial fibrillation; E78.5 Hyperlipidemia, unspecified; E78.00 Pure hypercholesterolemia, unspecified; I25.2 Old myocardial infarction; Z95.810 Presence of automatic (implantable) cardiac defibrillator; Z98.61 Coronary angioplasty status; Z98.890 Other specified postprocedural states; Z95.1 Presence of aortocoronary bypass graft; Z79.899 Other long term (current) drug therapy; Z87.891 Personal history of nicotine dependence; Z82.49 Family history of ischemic heart disease and other diseases of the circulatory system ==

== ENCOUNTER → 2020-09-01 | Outpatient (CLI) | payer OTHER | LOC: SJCVC 14:40 | PROVIDERS: ATTEND Internal Medicine Cardiovascular Disease | DX: I44.0 Atrioventricular block, first degree (principal); T82.198A Other mechanical complication of other cardiac electronic device, initial encounter; I48.0 Paroxysmal atrial fibrillation; I25.5 Ischemic cardiomyopathy; I49.3 Ventricular premature depolarization; E78.00 Pure hypercholesterolemia, unspecified; I25.10 Atherosclerotic heart disease of native coronary artery without angina pectoris; I10 Essential (primary) hypertension; E78.5 Hyperlipidemia, unspecified; I25.2 Old myocardial infarction; F12.90 Cannabis use, unspecified, uncomplicated; Z95.1 Presence of aortocoronary bypass graft; Z98.61 Coronary angioplasty status; Z98.890 Other specified postprocedural states; Z95.810 Presence of automatic (implantable) cardiac defibrillator; Z79.899 Other long term (current) drug therapy; Z87.891 Personal history of nicotine dependence; Z82.49 Family history of ischemic heart disease and other diseases of the circulatory system; Y71.8 Miscellaneous cardiovascular devices associated with adverse incidents, not elsewhere classified; Y92.89 Other specified places as the place of occurrence of the external cause ==

== ENCOUNTER → 2021-01-27 | Outpatient (CLI) | payer OTHER | LOC: SJCVC 14:31 | PROVIDERS: ATTEND Internal Medicine Cardiovascular Disease | DX: R94.31 Abnormal electrocardiogram [ECG] [EKG] (principal); I25.10 Atherosclerotic heart disease of native coronary artery without angina pectoris; E78.00 Pure hypercholesterolemia, unspecified; I25.5 Ischemic cardiomyopathy; I48.91 Unspecified atrial fibrillation; I48.92 Unspecified atrial flutter; I10 Essential (primary) hypertension; I49.3 Ventricular premature depolarization; D68.59 Other primary thrombophilia; Z82.49 Family history of ischemic heart disease and other diseases of the circulatory system; Z98.890 Other specified postprocedural states; Z45.02 Encounter for adjustment and management of automatic implantable cardiac defibrillator; Z79.899 Other long term (current) drug therapy; Z72.89 Other problems related to lifestyle; Z87.891 Personal history of nicotine dependence ==